=== PATIENT | female | born 1930 | race Caucasian/White ===

== ENCOUNTER 2017-03-21 09:07 | Emergency (ER) | payer OTHER, BC ==
[2017-03-21 09:15] VITALS: BP 158/84; PULSE 81; TEMP 98.1; BMI 35.2
--- NOTE | 2017-03-21 09:26 | PDOC ---
History of Present Illness - General History Source: Patient Exam Limitations: No Limitations - History of Present Illness Initial Comments: 03/21/17 09:43 The patient is a 87 year old female, with a significant past medical history of DM, HTN who presents to the emergency department with laceration to bridge of nose. Patient states she tripped and fell at the cafe in the hospital. Patient reports pain to the area however denies any other injuries or trauma. She denies chest pain, headache or dizziness. She denies fever, chills, nausea, vomit, diarrhea or constipation. She denies dysuria, frequency, urgency or hematuria. Allergies: Penicillins Past surgical history: Abdominal surgery Social history:None PCP: Dr. Orlando <Rosa Velasco - Last Filed: 03/21/17 11:52> <Aniyah Oglesby - Last Filed: 03/21/17 11:58> - General Chief Complaint: Injury Stated Complaint: INJURY Time Seen by Provider: 03/21/17 09:25 Past History <Rosa Velasco - Last Filed: 03/21/17 11:52> - Past Medical History Diabetes: Yes HTN: Yes - Surgical History Abdominal Surgery: Yes - Immunization History Td Vaccination: (08/18) - Psycho/Social/Smoking Cessation Hx Anxiety: No Suicidal Ideation: No Smoking Status: No Smoking History: Never smoked Have you smoked in the past 12 months: No Number of Cigarettes Smoked Daily: 0 Information on smoking cessation initiated: No Hx Alcohol Use: No Drug/Substance Use Hx: No Substance Use Type: None <Aniyah Oglesby - Last Filed: 03/21/17 11:58> - Past Medical History Allergies/Adverse Reactions: Allergies Allergy/AdvReac Type Severity Reaction Status Date / Time Penicillins Allergy Rash Verified 03/21/17 09:11 Home Medications: Ambulatory Orders Glimepiride 2 mg PO BID 03/25/12 Olmesartan Medoxomil [Benicar] 5 mg PO DAILY 03/25/12 Sitagliptin Phosphate [Januvia] 100 mg PO DAILY 03/25/12 Amlodipine Besylate [Norvasc -] 10 mg PO DAILY 01/05/15 Aspirin [ASA -] 325 mg PO DAILY 01/05/15 Atenolol [Tenormin -] 50 mg PO DAILY 01/05/15 Atorvastatin Ca [Lipitor -] 20 mg PO HS 01/05/15 Omega3/Dha/Epa/Fish Oil/Vit D3 [Fish Oil + Vitamin D-3 Softgel] 1 each PO BID Pregabalin [Lyrica -] 50 mg PO DAILY 01/05/15 Sitagliptin Phos/Metformin HCl [Janumet 50-500 mg Tablet] 1 tab PO BID 01/05/15 Review of Systems - Review of Systems Able to Perform ROS?: Yes Comments:: 03/21/17 09:43 GENERAL/CONSTITUTIONAL: No fever or chills. No weakness. HEAD, EYES, EARS, NOSE AND THROAT: No change in vision. No ear pain or discharge. No sore throat. CARDIOVASCULAR: No chest pain or shortness of breath. RESPIRATORY: No cough, wheezing, or hemoptysis. GASTROINTESTINAL: No nausea, vomiting, diarrhea or constipation. GENITOURINARY: No dysuria, frequency, or change in urination. MUSCULOSKELETAL: No joint or muscle swelling or pain. No neck or back pain. SKIN: + Nose laceration. No rash NEUROLOGIC: No headache, vertigo, loss of consciousness, or change in strength/ sensation. ENDOCRINE: No increased thirst. No abnormal weight change. HEMATOLOGIC/LYMPHATIC: No anemia, easy bleeding, or history of blood clots. ALLERGIC/IMMUNOLOGIC: No hives or skin allergy. <Rosa Velasco - Last Filed: 03/21/17 11:52> *Physical Exam - Vital Signs Last Vital Signs Temp Pulse Resp BP Pulse Ox 98.1 F 81 18 158/84 96 03/21/17 09:11 03/21/17 09:11 03/21/17 09:11 03/21/17 09:11 03/21/17 09:11 - Physical Exam Comments: 03/21/17 09:43 GENERAL: Awake, alert, and fully oriented, in no acute distress HEAD: No signs of trauma EYES: PERRLA, EOMI, sclera anicteric, conjunctiva clear ENT: Auricles normal inspection, hearing grossly normal, nares patent, oropharynx clear without exudates. Moist mucosa NECK: Normal ROM, supple, no lymphadenopathy, JVD, or masses HEART: Regular rate and rhythm, normal S1 and S2, no murmurs, rubs or gallops EXTREMITIES: Normal range of motion, no edema. No clubbing or cyanosis. No cords, erythema, or tenderness NEUROLOGICAL: Cranial nerves II through XII grossly intact. Normal speech, normal gait SKIN:+Deformity to the nasal bridge. +Small abrasion to the nose. Warm, Dry, normal turgor, no rashes or lesions noted. <Rosa Velasco - Last Filed: 03/21/17 11:52> - Vital Signs Last Vital Signs Temp Pulse Resp BP Pulse Ox 98.1 F 81 18 158/84 96 03/21/17 09:11 03/21/17 09:11 03/21/17 09:11 03/21/17 09:11 03/21/17 09:11 <Aniyah Oglesby - Last Filed: 03/21/17 11:58> Procedures - Laceration/Wound Repair Nose Wound Length: to 2.5 cm Wound Explored: clean, no foreign body present Wound's Depth, Shape: superficial Wound Repaired With: Dermabond <Aniyah Oglesby - Last Filed: 03/21/17 11:58> Medical Decision Making - Medical Decision Making 03/21/17 11:52 Nasal Bone Xray No displaced fracture is seen. Clinically correlate with point tenderness. Reported By: Marshal Naik MD 03/21/17 1143 <Rosa Velasco - Last Filed: 03/21/17 11:52> *DC/Admit/Observation/Transfer - Attestations Scribe Attestion: 03/21/17 09:43 Documentation prepared by Rosa Velasco, acting as territory sales manager medical for Aniyah Oglesby MD. <Rosa Velasco - Last Filed: 03/21/17 11:52> - Discharge Dispostion Admit: No <Aniyah Oglesby - Last Filed: 03/21/17 11:58> Diagnosis at time of Disposition: Laceration Accidental fall Qualifiers: Encounter type: initial encounter Qualified Code(s): W19.XXXA - Unspecified fall, initial encounter - Discharge Dispostion Disposition: HOME Condition at time of disposition: Stable - Referrals Referrals: Toro Orlando MD [Primary Care Provider] - - Patient Instructions Printed Discharge Instructions: DI for Laceration Repair With Dermabond, DI for Closed Head Injury
[2017-03-21] MEDS ORDERED: DIPHTH,PERTUSS(ACELL),TET VAC 0.5 ML VIAL IM ONE (09:38)
== END 2017-03-21 12:14 | disposition home or self-care (01) ==
LOC: JER 09:07
PROC: 09QKXZZ Repair Nasal Mucosa and Soft Tissue, External Approach (ICD-10-PCS; principal; 2017-03-21)
DX: S01.21XA Laceration without foreign body of nose, initial encounter (principal); W01.0XXA Fall on same level from slipping, tripping and stumbling without subsequent striking against object, initial encounter; Y93.01 Activity, walking, marching and hiking; Y92.233 Cafeteria of hospital as the place of occurrence of the external cause; I10 Essential (primary) hypertension; E11.9 Type 2 diabetes mellitus without complications; Z88.0 Allergy status to penicillin; Z79.82 Long term (current) use of aspirin; Z79.84 Long term (current) use of oral hypoglycemic drugs
CPT/HCPCS: 70160-TC; 99281-25